=== PATIENT | female | born 1970 | race African-American/Black ===

== ENCOUNTER 2019-11-10 01:50 | Inpatient (IN) | payer OTHER ==
[2019-11-10] MEDS ORDERED: Senokot S 8.6-50 MG TAB PO PRN (03:01)
[2019-11-10] MEDS ORDERED: Dextrose 50% Abboject 50 ML SYRINGE SLOW IVP PRN (03:52)
[2019-11-10] MEDS ORDERED: HumaLOG 300 UNITS/3 ML VIAL SC PRN (03:52)
[2019-11-10] MEDS ORDERED: Dextrose 5% in Water 1,000 ML IV PRN (03:52)
[2019-11-10 03:53] LABS: Anion Gap 16 mmol/L (10-20); BUN (Urea Nitrogen) 9 mg/dL (9.8-20.1); Calc. Creatinine Clearance 0 mL/min (70-130); Calcium 9.3 mg/dL (7.8-10.44); Carbon Dioxide 25 mmol/L (22-29); Chloride 102 mmol/L (98-107); Estimated GFR-MDRD Greater than 90; Glucose 174 mg/dL (70-105); Potassium 4.4 mmol/L (3.5-5.1); Sodium 139 mmol/L (136-145)
[2019-11-10] MEDS ORDERED: Ondansetron PF 4 MG/2 ML Vial IVP PRN (03:53)
[2019-11-10 03:58] LABS: Hemoglobin 13.6 g/dL (12.0-16.0); Lymphocytes 11 % (21-51); MDiff Complete? YES; Mean Corpuscular HGB CONC 32.3 g/dL (32.0-36.0); Mean Corpuscular Hemoglobin 29.3 pg (27.0-31.0); Mean Corpuscular Volume 90.8 fL (78.0-98.0); Mean Platelet Volume 9.3 fL (7.4-10.4); Monocytes 11 % (0-10); Neutrophil 78 % (42-75); Platelet Count 187 thou/uL (130-400); Platelet Morphology Comment Appears Adequate; RBC Distribution Width 13.5 % (11.5-14.5); Red Blood Cell (RBC) Count 4.64 mill/uL (4.20-5.40); White Blood Cell (WBC) Count 11.2 thou/uL (4.8-10.8)
[2019-11-10 04:21] VITALS: BMI 60.6
--- NOTE | 2019-11-10 04:21 | HP ---
CHIEF COMPLAINT: Abdominal pain, nausea, and vomiting. HISTORY OF PRESENT ILLNESS: The patient is a 49-year-old female with past medical history of hypertension, diabetes, obesity, and a history of DVT, who presents to the hospital with complaints of abdominal pain, nausea, and vomiting going on for the past couple of days. The patient states that for the past couple of days, she has been significantly nauseated today. She had significant amount of vomiting and abdominal pain, so she came into the ER. She denies any fevers, however, she stated that she did have some chills. PAST MEDICAL HISTORY: As of the following, 1. She has a history of obesity. 2. Peripheral edema. 3. History of DVT and PE in 2010. 4. Hypertension. 5. Heart failure. 6. She has a history of hyperlipidemia. 7. Type 2 diabetic. 8. Generalized headaches. PAST SURGICAL HISTORY: 1. She has had a pacemaker to her left chest wall area. 2. Knee surgery. 3. . SOCIAL HISTORY: She denies any smoking, alcohol use, or drug use. She is a full code. Lives with her family. FAMILY HISTORY: Mother had strokes. REVIEW OF SYSTEMS: All negative except for the ones mentioned above in the HPI. ALLERGIES: SHE HAS NO KNOWN DRUG ALLERGIES. MEDICATIONS: 1. Atorvastatin 40 mg daily. 2. Bumex 3 mg p.o. twice a day. 3. Lasix 40 mg daily. 4. Metformin 500 mg q.24 hours. 5. Lisinopril 10 mg daily. 6. Metoprolol 100 mg q.24 hours. 7. Pantoprazole 40 mg daily. 8. Spironolactone 25 mg daily. 9. Tramadol 50 mg every 6 hours p.r.n. 10. She is on warfarin. LABORATORY RESULTS: As of the following; her sodium was 142, potassium of 4.1, BUN was 12, creatinine was 0.77. Her LFTs were normal. AST was 14, ALT was 15, alkaline phosphatase was 79, lipase was 13. Her INR was 1.8. Troponin was normal. CBC; WBCs of 7.5, hemoglobin of 12.9, hematocrit of 40.5, platelets of 205. She did have an abdominal ultrasound, which indicated a shadowing nonmobile calculus noted to the neck of the gallbladder measuring 1.7 cm. Gallbladder wall is mildly thickened, measuring 0.4. Common bile duct is normal. PHYSICAL EXAMINATION: VITAL SIGNS: Are as of the following; temperature of 99.1, pulse of 85, blood pressure 182/90, on room air, and respiratory rate 17. GENERAL: She is awake, alert, and oriented x3. Does not appear in distress. HEENT: Normocephalic and atraumatic. No lymphadenopathy noted. Pupils are equal and reactive to light. CV: S1 and S2 present. No murmurs, rubs, or gallops. She does have pacemaker to her left chest wall area. LUNGS: Clear to auscultation. No rhonchi or wheezes noted. ABDOMEN: Large, obese. Bowel sounds are present x2. Pain upon palpation to right upper quadrant. Lower extremity, +1 lower extremity edema. Pedal pulses are present x2. NEUROVASCULAR: There were no focal deficits noted. SKIN: No cuts, lesions, or bruises noted. ASSESSMENT AND PLAN: The patient is a very pleasant 49-year-old female, who presents to the hospital with complaints of abdominal pain. 1. Abdominal pain, most likely secondary to calculus noted to be in the neck of the gallbladder. Her LFTs are normal. There was some thickening of the gallbladder. We will start the patient on IV hydration. We will keep her n.p.o. Surgery has been consulted, and we will continue to monitor her LFTs. 2. History of diabetes. We will put the patient on Accu-Cheks before meals and at bedtime and hold metformin. 3. Hypertension. We will continue the patient's blood pressure medications and start her on p.r.n. 4. History of deep venous thrombosis and pulmonary embolism. The patient stated that she had a deep venous thrombosis, which ended up going into her lungs in 2010. She has since then been on Coumadin. We will hold off on her Coumadin and may start heparin if needed. 5. The patient states that she does have a history of heart disease; however, she has never been here before and we do not have any records from her. We will need to get records from her recent echocardiogram. She did have an EKG done in the ER, which did not show any acute ST elevation or depression. The patient denies any chest pain or shortness of breath. She is not on any oxygen at home nor she is on any BiPAP. 6. Deep venous thrombosis prophylaxis. The patient's INR currently 1.8. We will continue to monitor. Job ID: [id number]
[2019-11-10] MEDS: Sodium Chloride 0.9% 1,000 ML IV SCH (04:54)
[2019-11-10] MEDS ORDERED: Enoxaparin Sodium 40 MG/0.4 ML SYRINGE SC SCH (09:00)
[2019-11-10] MEDS: Lisinopril 10 MG TAB PO SCH (10:39)
[2019-11-10 15:08] LABS: INR-International Normal Ratio 1.6; PTT 33.2 SEC (22.9-36.1); Prothrombin Time 19.1 SEC (12.0-14.7)
[2019-11-10 15:19] LABS: ALT (SGPT) 9 U/L (8-55); AST (SGOT) 10 U/L (5-34); Albumin 3.9 g/dL (3.5-5.0); Alkaline Phosphatase 68 U/L (40-110); Bilirubin, Direct 0.7 mg/dL (0.1-0.3); Bilirubin, Total 1.9 mg/dL (0.2-1.2); Lipase Less than 4 U/L (8-78)
--- NOTE | 2019-11-10 15:25 | RAD ---
EXAM: Single view of the chest HISTORY: Dyspnea; preoperative radiograph COMPARISON: 09/27/2015 FINDINGS: Single view of the chest shows an enlarged but stable cardiomediastinal silhouette. The pa cemaker is unchanged in position. There is no evidence of consolidation, mass, or pleural effusion. Degenerative changes are seen in the spine. IMPRESSION: Cardiomegaly
[2019-11-10] MEDS: Piperacillin/Tazobactam 3.375 GM in Sodium Chloride 0.9% 100 ML IVPB SCH ×2 (16:06→19:33)
[2019-11-10] MEDS ORDERED: Magnesium Sulfate 4 GM in Sodium Chloride 0.9% 250 ML 250 ML IVPB SCH (16:15)
[2019-11-10] MEDS ORDERED: Phytonadione 10 MG/ML AMP PO SCH (16:15)
--- NOTE | 2019-11-10 16:53 | CON ---
DATE OF CONSULTATION: 11/10/2019 PRIMARY WOLF HUNTER: Mejia Ventura MD REASON FOR CONSULTATION: Preoperative evaluation. HISTORY OF PRESENT ILLNESS: Ms. Baker is a pleasant 49-year-old woman with long history of nonischemic cardiomyopathy. She was seen in the office in August of this year and doing well. Ejection fraction was 25% to 30% at that time, which was improved from previous studies. The patient otherwise has been doing relatively well until she developed symptoms of cholecystitis. This is outlined in the chart. MEDICATIONS: At home included: 1. Lisinopril. 2. Spironolactone. 3. Potassium. 4. Furosemide. 5. Metoprolol. 6. Atorvastatin. The patient is also taking Coumadin for deep venous thrombosis and pulmonary embolism many years ago. ALLERGIES: NONE KNOWN. SOCIAL HISTORY: No alcohol or tobacco abuse. REVIEW OF SYSTEMS: CONSTITUTIONAL: No significant weight gain or loss. VISION: No changes. HEARING: No changes. PULMONARY: No cough or wheezing. GASTROINTESTINAL: No nausea, vomiting, or diarrhea. She does have abdominal pain. SKIN: No rashes. PHYSICAL EXAMINATION: GENERAL: This is extremely overweight woman. VITAL SIGNS: She is 5 feet 4 inches, 353 pounds, BMI 60, blood pressure 138/85, pulse 95 and regular. LUNGS: Clear. CARDIAC: Normal S1, normal S2. I do not hear murmur, rub, or gallop. ABDOMEN: Soft, nontender. EXTREMITIES: Warm, dry. No clubbing or cyanosis. There is no edema. PERTINENT LABORATORY DATA: The WBC count is 11.2. INR is 1.6. EKG, sinus rhythm with PVCs. ASSESSMENT: 1. Acute cholecystitis. 2. Nonischemic cardiomyopathy, appears stable, not in heart failure. 3. Previous single-chamber defibrillator. She said this was checked recently by the vertical punch operator and functioning normally. Appears to be sensing normally on the EKG now. PLAN: 1. Okay to proceed with surgeries as planned. 2. Dr. Ventura will check on the patient tomorrow. Job ID: [id number]
--- NOTE | 2019-11-10 18:33 | CON ---
DATE OF CONSULTATION: 11/10/2019 This is Erica Laws PA-C dictating a report for Joselito Maurer DO. GENERAL SURGEON: Dr. Maurer. HISTORY OF PRESENT ILLNESS: The patient is a 49-year-old female who was admitted for concern for acute cholecystitis. The patient was originally evaluated at [facility] and then transferred here. She reports a 2-day history of right upper quadrant and epigastric pain with nausea and vomiting. Her last bowel movement was yesterday, and she does not have bowel movements every day. The patient reports the pain started after eating at [facility]. The pain was much better controlled now. She has been n.p.o. since her arrival. The patient is on Coumadin for DVT and PEs in 2010. She also has a history of hypertension, diabetes, obesity, VTE, peripheral vascular disease, CHF, and hyperlipidemia. She has an ICD as well. Her sports development officer is Dr. Ventura. She is compliant with her medications. Dr. Wiggins has consulted Cardiology on-call and Dr. Gotti has evaluated the patient for preoperative clearance. At the time of my evaluation, the patient reported her pain was better controlled, and she had no other complaints. REVIEW OF SYSTEMS: All additional 10-point review of systems negative except as indicated above. PAST MEDICAL HISTORY: Hypertension, diabetes, obesity, DVT, PE in 2010, peripheral vascular disease, CHF, hyperlipidemia, and ICD placement. PAST SURGICAL HISTORY: x1, knee scope, and ICD placement. SOCIAL HISTORY: The patient lives at home with her family. She walks independently without assistance. She denies tobacco and drug use. She does drink occasionally. MEDICATIONS: Include: 1. Vitamin B12. 2. Lisinopril. 3. Metformin. 4. Coumadin. 5. Atorvastatin. 6. Bumex. 7. Lasix. 8. Potassium chloride. 9. Spironolactone. PHYSICAL EXAMINATION: VITAL SIGNS: Temperature 100.0, pulse 95, respirations 16, oxygen saturation 95% on room air, and blood pressure 138/85. GENERAL: A middle-aged obese female, lying in bed with no signs of acute distress. PULMONARY: Equal chest rise and fall. Clear breath sounds bilaterally. No signs of acute respiratory distress. CARDIAC: Regular rate and rhythm. No murmurs, gallops, or rubs. GI: Abdomen is soft, moderately tender in the right upper quadrant and epigastric areas. Nondistended. EXTREMITIES: 2+ pulses in all extremities. Gross motor and sensation intact. NEUROLOGIC: GCS 15. LABORATORY FINDINGS: White count 11.2, hemoglobin 13.6, hematocrit 42.1, and platelets 187. INR 1.6. Sodium 139, potassium 4.4, chloride 102, bicarb 25, BUN 9, creatinine 0.75, glucose 174, magnesium 1.5, total bilirubin 1.9, and AST 10, ALT 9. DIAGNOSTIC FINDINGS: Ultrasound of the right upper quadrant completed at [facility] demonstrated a nonmobile gallstone at the neck of the gallbladder measuring about 1.7 cm with wall thickening. Gallbladder wall measuring 0.4 cm concerning for acute cystitis. Common bile duct measuring 4 mm. ASSESSMENT: Acute cholecystitis and cholelithiasis. PLAN: The patient will receive a clear liquid diet and be n.p.o. after midnight in preparation for laparoscopic cholecystectomy tomorrow with Dr. Maurer. She will receive 2.5 mg of vitamin K oral today. We will repeat blood work tomorrow including coags. We will also complete a type and screen. The patient was seen and examined by Dr. Maurer and myself this evening. Job ID: [id number]
[2019-11-10] MEDS: Bumetanide 1 MG TAB PO SCH (19:32)
[2019-11-10] MEDS: Acetaminophen 325 MG TAB PO PRN (19:32)
[2019-11-11] MEDS: Sodium Chloride 0.9% 1,000 ML IV SCH ×2 (01:02→21:06)
[2019-11-11] MEDS: Piperacillin/Tazobactam 3.375 GM in Sodium Chloride 0.9% 100 ML IVPB SCH ×4 (03:21→21:04)
[2019-11-11 05:48] LABS: INR-International Normal Ratio 1.6; PTT 34.3 SEC (22.9-36.1); Prothrombin Time 18.5 SEC (12.0-14.7)
[2019-11-11 05:58] LABS: Phosphorus 3.1 mg/dL (2.3-4.7)
[2019-11-11 06:06] LABS: Band 7 % (5-11); Hemoglobin 13.7 g/dL (12.0-16.0); Lymphocytes 12 % (21-51); MDiff Complete? YES; Mean Corpuscular HGB CONC 32.1 g/dL (32.0-36.0); Mean Corpuscular Hemoglobin 28.9 pg (27.0-31.0); Mean Corpuscular Volume 89.9 fL (78.0-98.0); Mean Platelet Volume 9.7 fL (7.4-10.4); Monocytes 4 % (0-10); Neutrophil 77 % (42-75); Platelet Count 184 thou/uL (130-400); RBC Distribution Width 13.5 % (11.5-14.5); Red Blood Cell (RBC) Count 4.75 mill/uL (4.20-5.40); White Blood Cell (WBC) Count 14.2 thou/uL (4.8-10.8)
[2019-11-11 06:07] LABS: ALT (SGPT) 9 U/L (8-55); AST (SGOT) 10 U/L (5-34); Albumin 3.9 g/dL (3.5-5.0); Alkaline Phosphatase 71 U/L (40-110); Anion Gap 14 mmol/L (10-20); BUN (Urea Nitrogen) 6 mg/dL (9.8-20.1); Bilirubin, Total 2.8 mg/dL (0.2-1.2); Calc. Creatinine Clearance 244 mL/min (70-130); Calcium 9.2 mg/dL (7.8-10.44); Carbon Dioxide 29 mmol/L (22-29); Chloride 99 mmol/L (98-107); Estimated GFR-MDRD Greater than 90; Globulin 3.4 g/dL (2.4-3.5); Glucose 148 mg/dL (70-105); Magnesium 1.8 mg/dL (1.6-2.6); Potassium 3.7 mmol/L (3.5-5.1); Protein, Total 7.3 g/dL (6.0-8.3); Sodium 138 mmol/L (136-145)
[2019-11-11] MEDS ORDERED: HYDROmorphone 0.5 MG/0.5 ML SYRINGE ONE (06:21)
[2019-11-11] MEDS ORDERED: Midazolam HCl 2 mg/2 ml Vial ONE (06:21)
[2019-11-11] MEDS ORDERED: Fentanyl 100 MCG/2 ML VIAL ONE ×2 (06:21→11:02)
[2019-11-11] MEDS ORDERED: Lidocaine 2% Jelly 5 ML TUBE ONE (06:21)
[2019-11-11] MEDS ORDERED: Lidocaine 1% w/Epinephrine 1:100K 20 ML VIAL ONE (06:53)
[2019-11-11] MEDS ORDERED: Bupivacaine 0.25% HCL 30 ML VIAL ONE (06:53)
[2019-11-11] MEDS ORDERED: Ketamine 50 MG/ML (10ML VIAL) ONE (07:04)
[2019-11-11] MEDS ORDERED: Magnesium 2 GM/50 ML 2 GM in Premix Bag 1 BAG IVPB SCH (07:45)
[2019-11-11] MEDS ORDERED: PHOS-NAK 1 PKT PACK PO SCH (07:45)
[2019-11-11] MEDS ORDERED: Albuterol Sulfate HFA (OR ONLY) ONE ×2 (07:46→07:47)
[2019-11-11] MEDS ORDERED: Piperacillin/Tazobactam 3.375 GM VIAL ONE (08:23)
[2019-11-11] MEDS ORDERED: Phenylephrine HCL 10 MG/ML VIAL ONE (08:39)
[2019-11-11] MEDS ORDERED: Furosemide 40 MG TAB PO SCH (09:00)
[2019-11-11] MEDS ORDERED: SUGAMMADEX SODIUM 500 MG/5 ML VIAL ONE (09:22)
[2019-11-11] MEDS ORDERED: Promethazine HCl 25 MG/ML VIAL IM PRN (10:49)
[2019-11-11] MEDS ORDERED: Ondansetron HCl/PF 4 MG/2 ML Vial IVP PRN (10:49)
[2019-11-11] MEDS ORDERED: Promethazine HCl 25 MG/ML VIAL SLOW IVP PRN (10:49)
[2019-11-11] MEDS ORDERED: Rocuronium Bromide 10 MG/ML (10ML VIAL) ONE (12:31)
[2019-11-11] MEDS ORDERED: Dexamethasone 20 MG/5 ML VIAL ONE (12:31)
[2019-11-11] MEDS ORDERED: Ondansetron PF 4 MG/2 ML Vial ONE (12:31)
[2019-11-11] MEDS ORDERED: Lidocaine 1% PF 5 ML VIAL ONE (12:31)
[2019-11-11] MEDS ORDERED: PHENYLEPHRINE-NS 100 MCG/ML 10 ML SYRINGE ONE (12:31)
[2019-11-11] MEDS ORDERED: PROPOFOL 200 MG/20 ML VIAL ONE (12:31)
--- NOTE | 2019-11-11 12:38 | OP ---
DATE OF PROCEDURE: 11/11/2019 PREOPERATIVE DIAGNOSES: 1. Acute cholecystitis with cholelithiasis. 2. Morbid obesity. BMI is 62. POSTOPERATIVE DIAGNOSES: 1. Acute cholecystitis with cholelithiasis. 2. Morbid obesity. BMI is 62. PROCEDURE PERFORMED: Laparoscopic cholecystectomy. ANESTHESIA: General endotracheal. ESTIMATED BLOOD LOSS: 20 mL. FLUIDS GIVEN: 2000 mL of crystalloids. COUNTS: Sponge and instrument counts were verified as correct x2. COMPLICATIONS: None apparent at the time of operation. INDICATIONS FOR OPERATION: This is a 49-year-old morbidly obese woman, BMI 62, presented with epigastric right upper quadrant abdominal pain after eating. Clinical radiographic examination was consistent with acute cholecystitis and cholelithiasis, for which the patient was brought to the operating room for cholecystectomy. Findings are consistent with markedly distended gallbladder in the usual anatomic location completely encased by omental adhesions. Additionally, the patient's body habitus made it difficult to insufflate the patient to gain appropriate exposure. The patient's physiology did not tolerate a reverse Trendelenburg position, which made operation rather tedious. DESCRIPTION OF PROCEDURE: Informed consent was obtained from the patient, who was brought to the operating room and placed in supine position. Following general anesthesia, abdomen was sterilely prepped and draped in usual fashion. I decided to enter the abdominal cavity through the left upper quadrant due to the patient's morbid obesity with large pannus. To achieve this, the left upper quadrant was anesthetized with 1% lidocaine. A stab incision was made through which a Veress needle was introduced into the peritoneal cavity. Abdomen was insufflated with 2 L of CO2 gas with intraabdominal pressure of 4 mmHg. Following abdominal insufflation, Veress needle was removed and a 5-mm trocar introduced using a Visiport. Laparoscopy confirmed proper placement of the port. No injuries to underlying structures. Additional laparoscopy reveals markedly distended intestines despite being adequately paralyzed. There was minimum room in the abdominal cavity. The skin 4 cm above the umbilicus was infiltrated with 0.25% Marcaine with epinephrine and a small transverse incision was made here using 11 scalpel. A 5-mm trocar was introduced using a Visiport into the peritoneal cavity. Under direct laparoscopy, a 12 mm epigastric and two 5 mm right lateral subcostal ports were placed after the overlying skin were infiltrated with 0.25% Marcaine with epinephrine. Appropriate incisions were made. The patient was then placed in reverse Trendelenburg position, rotated to her left, which she was unable to tolerate for more than 10 minutes at the time. I introduced a [place] dissector with cautery through the epigastric port site, using this to take down omental adhesions to expose the fundus of the gallbladder. Prestige grasper introduced through the right lateral subcostal port grasping the fundus of the gallbladder, which was taut. We decided therefore to decompress the gallbladder to allow for ease of manipulation. To achieve this to use the Endo suction catheter with cautery to create a cholecystotomy at the dome of the gallbladder, evacuating large amount of excess white bile. Prestige grasper was then applied to the fundus of the gallbladder, which was elevated cephalad. Omental adhesions were meticulously dissected off the remainder of the gallbladder. A second Prestige grasper introduced through the right medial subcostal port grasping the Haider's pouch, which was retracted laterally. The cystic duct was carefully dissected free from surrounding structures with great difficulty due to significant amount of dense adhesions. The duct was divided between clips, applying 2 clips proximally and one clip at the junction of the cystic duct and gallbladder. The cystic artery was also carefully dissected free from surrounding structures and divided between clips in a similar fashion. The gallbladder itself was removed from the liver bed using cautery with good hemostasis. It was delivered of the abdominal cavity using an Endo Catch. Operative site was inspected for good hemostasis. Finding no other pathology, laparoscopy was terminated. Fascia of the epigastric port was closed using 0 Vicryl suture and Endo Close device under laparoscopy. The abdomen was desufflated. All ports and instruments removed and accounted for. Skin incisions were closed using 4-0 Monocryl suture in subcuticular fashion. Dermabond was applied over incisional closure. The patient tolerated the operation without any apparent complication and was returned to recovery room in satisfactory condition. Note that, the patient had multiple episodes of hypertension due to being placed in a supine position requiring vasopressor support, so we interrupted operation at multiple instance in order to gain adequate blood pressure. Job ID: [id number]
[2019-11-11] MEDS: Atorvastatin Calcium 40 MG TAB PO SCH (13:50)
[2019-11-11] MEDS: Bumetanide 1 MG TAB PO SCH ×2 (13:50→21:04)
[2019-11-11] MEDS: Lisinopril 10 MG TAB PO SCH (13:50)
[2019-11-11] MEDS: Potassium Chloride 20 MEQ TAB PO SCH (13:51)
[2019-11-11] MEDS: Saccharomyces boulardii 250 MG CAP PO SCH (13:51)
[2019-11-11] MEDS: Spironolactone 25 MG TAB PO SCH (13:51)
[2019-11-11] MEDS ORDERED: traMADol HCl 50 MG TAB PO PRN (15:47)
--- NOTE | 2019-11-11 17:21 | PDOC.HOSPP ---
- Subjective Encounter Date: 11/11/19 Encounter Time: 16:30 Subjective: Patient seen and examined for acute cholecystitis. Pain controlled. No N/V. No new complaints. No overnight events - Objective Vital Signs & Weight: Vital Signs (12 hours) Temp BP Pulse Ox 11/11/19 16:00 97.9 F 11/11/19 13:50 159/84 H 11/11/19 12:15 100 Weight Weight 353 lb 2.888 oz I&O: 11/10/19 11/11/19 11/12/19 06:59 06:59 06:59 Intake Total 1230 Balance 1230 Result Diagrams: 11/11/19 05:16 11/11/19 05:16 EKG Reviewed by me: Yes (Tele SR) Hospitalist ROS - Review of Systems Respiratory: denies: cough, dry, shortness of breath, hemoptysis, SOB with excertion, pleuritic pain, sputum, wheezing, other Cardiovascular: denies: chest pain, palpitations, orthopnea, paroxysmal noc. dyspnea, edema, light headedness, other - Medication Medications: Active Medications Generic Name Dose Route Start Last Admin Trade Name Freq PRN Reason Stop Dose Admin Acetaminophen 650 mg 11/10/19 03:01 11/10/19 19:32 Tylenol PO 650 mg Q4H PRN Administration Headache/Fever/Mild Pain (1-3) Atorvastatin Calcium 40 mg 11/11/19 09:00 11/11/19 13:50 Lipitor PO Not Given DAILY DOLLY Bumetanide 3 mg 11/10/19 21:00 11/11/19 13:50 Bumex PO Not Given BID DOLLY Sodium Chloride 1,000 mls @ 50 mls/hr 11/10/19 04:00 11/11/19 01:02 Normal Saline 0.9% IV Not Given .Q20H DOLLY Piperacillin Sod/Tazobactam 100 mls @ 200 mls/hr 11/10/19 15:00 11/11/19 16: 48 Sod 3.375 gm/ Sodium Chloride IVPB 100 mls 0300,0900,1500,2100 DOLLY Administration Lisinopril 10 mg 11/10/19 09:00 11/11/19 13:50 Zestril PO Not Given DAILY DOLLY Metoprolol Succinate 100 mg 11/10/19 09:00 11/11/19 05:57 Toprol Xl PO 100 mg DAILY DOLYL Administration Pantoprazole Sodium 40 mg 11/10/19 09:00 11/11/19 13:51 Protonix PO Not Given DAILY DOLLY Potassium Chloride 20 meq 11/11/19 09:00 11/11/19 13:51 K-Dur PO Not Given DAILY DOLLY Saccharomyces Boulardii 250 mg 11/11/19 09:00 11/11/19 13:51 Florastor PO Not Given DAILY DOLLY Spironolactone 12.5 mg 11/11/19 09:00 11/11/19 13:51 Aldactone PO Not Given DAILY DOLLY - Exam General Appearance: NAD Heart: RRR, no gallops, no rubs, normal peripheral pulses Respiratory: no wheezes, no rales, no ronchi, normal chest expansion Respiratory - other findings: dec AE at bases Gastrointestinal: soft, normal bowel sounds, no guarding, no rigidity Extremities: no cyanosis, no clubbing Psychiatric: normal affect, A&O x 3 Hosp A/P - Plan DVT proph w/SCDs Sepsis due to Acute cholecystitis (POA) s/p Lap erin Abn LFTs due to above Chronic systolic HF due to Nonischemic CM Morbid obesity BMI 60.6 h/o DVT/PE on chronic anticoag HTN HLD DM2 PLAN: DC IVF later today if tolerating PO Cont IV Zosyn Cont sliding scale Cont diuretics/ACEI/BB/Potassium and other meds as above AM labs including PT/INR
[2019-11-11] MEDS: traMADol HCl 50 MG TAB PO PRN (18:58)
[2019-11-11] MEDS: Acetaminophen 325 MG TAB PO PRN (18:58)
--- NOTE | 2019-11-12 02:02 | PRG ---
DATE OF SERVICE: 11/11/2019 SUBJECTIVE: The patient was seen on the intermediate care unit, awake, alert, in no distress. The patient is postop day 0, status post laparoscopic cholecystectomy. The patient reports some mild tenderness to her abdomen. The patient has adequate urinary output. The patient denies any nausea or vomiting. The patient is tolerating a clear liquid diet at this time. OBJECTIVE: VITAL SIGNS: Stable, afebrile. GENERAL: Middle-aged female, obese, lying in hospital bed, in no acute distress. RESPIRATORY: Equal chest rise and fall, bilateral breath sounds clear. PLAN: Continue supportive care. Continue to monitor urinary output and blood pressure. Job ID: [id number]
[2019-11-12] MEDS: Piperacillin/Tazobactam 3.375 GM in Sodium Chloride 0.9% 100 ML IVPB SCH ×4 (03:29→20:41)
[2019-11-12 03:54] LABS: INR-International Normal Ratio 1.3; Prothrombin Time 15.9 SEC (12.0-14.7)
[2019-11-12 04:10] LABS: ALT (SGPT) 12 U/L (8-55); AST (SGOT) 20 U/L (5-34); Albumin 3.7 g/dL (3.5-5.0); Alkaline Phosphatase 68 U/L (40-110); Anion Gap 14 mmol/L (10-20); BUN (Urea Nitrogen) 9 mg/dL (9.8-20.1); Bilirubin, Total 1.8 mg/dL (0.2-1.2); Calc. Creatinine Clearance 210 mL/min (70-130); Calcium 8.6 mg/dL (7.8-10.44); Carbon Dioxide 29 mmol/L (22-29); Chloride 103 mmol/L (98-107); Estimated GFR-MDRD Greater than 90; Globulin 3.4 g/dL (2.4-3.5); Glucose 143 mg/dL (70-105); Magnesium 1.8 mg/dL (1.6-2.6); Phosphorus 3.5 mg/dL (2.3-4.7); Protein, Total 7.1 g/dL (6.0-8.3); Sodium 142 mmol/L (136-145)
[2019-11-12 04:16] LABS: Hemoglobin 12.2 g/dL (12.0-16.0); Mean Corpuscular HGB CONC 31.4 g/dL (32.0-36.0); Mean Corpuscular Hemoglobin 28.7 pg (27.0-31.0); Mean Corpuscular Volume 91.4 fL (78.0-98.0); Mean Platelet Volume 9.4 fL (7.4-10.4); Platelet Count 176 thou/uL (130-400); RBC Distribution Width 13.4 % (11.5-14.5); Red Blood Cell (RBC) Count 4.25 mill/uL (4.20-5.40); White Blood Cell (WBC) Count 14.6 thou/uL (4.8-10.8)
[2019-11-12 04:17] LABS: Band 7 % (5-11); Lymphocytes 15 % (21-51); MDiff Complete? YES; Monocytes 9 % (0-10); Neutrophil 69 % (42-75)
[2019-11-12] MEDS: Spironolactone 25 MG TAB PO SCH (09:20)
[2019-11-12] MEDS: Saccharomyces boulardii 250 MG CAP PO SCH (09:20)
[2019-11-12] MEDS: Atorvastatin Calcium 40 MG TAB PO SCH (09:20)
[2019-11-12] MEDS: Potassium Chloride 20 MEQ TAB PO SCH (09:20)
[2019-11-12] MEDS: Bumetanide 1 MG TAB PO SCH ×2 (09:20→20:40)
[2019-11-12] MEDS: Lisinopril 10 MG TAB PO SCH (09:21)
[2019-11-12] MEDS: traMADol HCl 50 MG TAB PO PRN (09:24)
[2019-11-12] MEDS: Acetaminophen 325 MG TAB PO PRN ×2 (09:24→17:55)
--- NOTE | 2019-11-12 15:58 | PRG ---
DATE OF SERVICE: 11/12/2019 SUBJECTIVE: Patient was seen this morning sitting up in a chair in the [facility]. She reported her pain is well controlled and she is tolerating her clear liquid diet. She gets up and walks independently. She has been voiding and was restarted on her home diuretic. She has no complaints at the time of my evaluation. OBJECTIVE: VITAL SIGNS: Temperature 97.9, pulse 93, respirations 18, oxygen saturation 100% on room air, blood pressure 166/94. GENERAL: Well-appearing, obese female, sitting up in chair with no signs of acute distress. PULMONARY: Equal chest rise and fall, clear breath sounds bilaterally. No signs of acute respiratory distress. CARDIAC: Regular rate and rhythm. GI: Abdomen is soft, mildly tender to the right upper quadrant, nondistended. EXTREMITIES: 2+ pulses in all extremities. Gross motor and sensation intact. No significant swelling noted. LABORATORY FINDINGS: White count 14.6, hemoglobin 12.2, hematocrit 38.8. INR 1.3. Sodium 142, potassium 4.0, chloride 103, bicarb 29, BUN 9, creatinine 0.80, glucose 143, phosphorus 3.5, magnesium 1.8. Total bilirubin 1.8, AST 20, ALT 12, alkaline phosphatase 68. DIAGNOSTIC FINDINGS: There are no new diagnostic findings to report. ASSESSMENT: 1. Postop day #1, status post laparoscopic cholecystectomy secondary to acute cholecystitis and cholelithiasis. 2. History of congestive heart failure, implantable cardioverter-defibrillator, diabetes, deep venous thrombosis, pulmonary embolism, on Coumadin, hyperlipidemia, and obesity. PLAN: The patient will be moved from the [facility] to a regular surgical floor. She will be advanced to a diabetic diet and start working with Physical Therapy. Medical management by Hospitalist team. The patient will follow up with Dr. Maurer in clinic in 2 weeks with LFTs. An appointment has been made and updated in the patient's discharge paperwork. Restart Coumadin per the discretion of the primary service. This patient was discussed with Dr. Maurer before this dictation. Job ID: [id number]
[2019-11-13] MEDS: Piperacillin/Tazobactam 3.375 GM in Sodium Chloride 0.9% 100 ML IVPB SCH ×2 (03:17→09:54)
[2019-11-13 05:38] LABS: INR-International Normal Ratio 1.2
[2019-11-13 05:48] LABS: ALT (SGPT) 17 U/L (8-55); AST (SGOT) 23 U/L (5-34); Albumin 3.6 g/dL (3.5-5.0); Alkaline Phosphatase 75 U/L (40-110); Anion Gap 17 mmol/L (10-20); BUN (Urea Nitrogen) 11 mg/dL (9.8-20.1); Bilirubin, Total 1.7 mg/dL (0.2-1.2); Calc. Creatinine Clearance 210 mL/min (70-130); Calcium 8.5 mg/dL (7.8-10.44); Carbon Dioxide 27 mmol/L (22-29); Chloride 100 mmol/L (98-107); Estimated GFR-MDRD Greater than 90; Globulin 3.4 g/dL (2.4-3.5); Glucose 121 mg/dL (70-105); Potassium 3.5 mmol/L (3.5-5.1); Sodium 140 mmol/L (136-145)
[2019-11-13 05:52] LABS: #Basophils 0.1 thou/uL (0.0-0.2); #Eosinphils 0.1 thou/uL (0.0-0.7); #Lymphocytes 2.4 thou/uL (1.20-3.40); #Monocytes 0.8 thou/uL (0.11-0.59); #Neutrophils 6.4 thou/uL (1.40-6.50); %Basophils 0.6 % (0.0-1.0); %Eosinophils 0.8 % (0.0-10.0); %Lymphocytes 24.8 % (21.0-51.0); %Monocytes 8.2 % (0.0-10.0); %Neutrophils 65.6 % (42.0-75.0); Hemoglobin 12.5 g/dL (12.0-16.0); Mean Corpuscular Hemoglobin 30.4 pg (27.0-31.0); Mean Corpuscular Volume 94.9 fL (78.0-98.0); Mean Platelet Volume 9.4 fL (7.4-10.4); Platelet Count 192 thou/uL (130-400); RBC Distribution Width 13.6 % (11.5-14.5); Red Blood Cell (RBC) Count 4.11 mill/uL (4.20-5.40); White Blood Cell (WBC) Count 9.8 thou/uL (4.8-10.8)
[2019-11-13] MEDS: Acetaminophen 325 MG TAB PO PRN (06:21)
--- NOTE | 2019-11-13 07:22 | PDOC.HOSPP ---
- Subjective Encounter Date: 11/12/19 Encounter Time: 16:30 Subjective: Patient seen and examined for Sepsis. No N/V. Abd pain improving. Tolerating liqd diet. No other complaints. No overnight events - Objective Vital Signs & Weight: Vital Signs (12 hours) Temp Pulse Resp BP Pulse Ox 11/13/19 03:21 98.6 F 77 16 93/68 99 11/12/19 23:24 98.5 F 74 16 97/63 99 11/12/19 20:39 98.6 F 69 16 112/74 97 Weight Weight 353 lb 2.888 oz Most Recent Monitor Data Heart Rate from ECG 75 NIBP 165/108 NIBP BP-Mean 127 Respiration from ECG 25 SpO2 100 I&O: 11/12/19 11/13/19 11/14/19 06:59 06:59 06:59 Intake Total 200 1170 Output Total 1800 900 Balance -1600 270 Result Diagrams: 11/13/19 05:15 11/13/19 05:15 Additional Labs: Accuchecks 11/13/19 11/12/19 11/12/19 06:21 20:52 15:54 POC Glucose 120 H 171 H 162 H 11/12/19 11:16 POC Glucose 147 H EKG Reviewed by me: Yes (Tele SR) Hospitalist ROS - Review of Systems Respiratory: denies: cough, dry, shortness of breath, hemoptysis, SOB with excertion, pleuritic pain, sputum, wheezing, other Cardiovascular: denies: chest pain, palpitations, orthopnea, paroxysmal noc. dyspnea, edema, light headedness, other - Medication Medications: Active Medications Generic Name Dose Route Start Last Admin Trade Name Freq PRN Reason Stop Dose Admin Acetaminophen 650 mg 11/10/19 03:01 11/13/19 06:21 Tylenol PO 650 mg Q4H PRN Administration Headache/Fever/Mild Pain (1-3) Atorvastatin Calcium 40 mg 11/11/19 09:00 11/12/19 09:20 Lipitor PO 40 mg DAILY DOLLY Administration Bumetanide 3 mg 11/10/19 21:00 11/12/19 20:40 Bumex PO 3 mg BID DOLLY Administration Piperacillin Sod/Tazobactam 100 mls @ 200 mls/hr 11/10/19 15:00 11/13/19 03: 17 Sod 3.375 gm/ Sodium Chloride IVPB 100 mls 0300,0900,1500,2100 DOLLY Administration Insulin Human Lispro 0 units 11/10/19 03:52 11/12/19 16:41 Humalog SC 2 unit .MILD SLIDING SCALE PRN Administration Mild Correctional Scale Lisinopril 10 mg 11/10/19 09:00 11/12/19 09:21 Zestril PO 10 mg DAILY DOLLY Administration Metoprolol Succinate 100 mg 11/10/19 09:00 11/12/19 09:20 Toprol Xl PO 100 mg DAILY DOLLY Administration Pantoprazole Sodium 40 mg 11/10/19 09:00 11/12/19 09:20 Protonix PO 40 mg DAILY DOLLY Administration Potassium Chloride 20 meq 11/11/19 09:00 11/12/19 09:20 K-Dur PO 20 meq DAILY DOLLY Administration Saccharomyces Boulardii 250 mg 11/11/19 09:00 11/12/19 09:20 Florastor PO 250 mg DAILY DOLLY Administration Spironolactone 12.5 mg 11/11/19 09:00 11/12/19 09:20 Aldactone PO 12.5 mg DAILY DOLLY Administration Tramadol HCl 50 mg 11/11/19 15:47 11/12/19 09:24 Ultram PO 50 mg Q6H PRN Administration Moderate Pain (4-6) Tramadol HCl 100 mg 11/11/19 15:47 11/12/19 17:55 Ultram PO 100 mg Q6H PRN Administration Severe Pain (7-10) - Exam General Appearance: NAD Heart: RRR, no gallops Respiratory: no wheezes, no ronchi Gastrointestinal: soft, non-distended Extremities: no cyanosis Hosp A/P - Plan DVT proph w/SCDs Sepsis due to Acute cholecystitis (POA) s/p Lap erin Abn LFTs - improving Chronic systolic HF due to Nonischemic CM Morbid obesity BMI 60.6 h/o DVT/PE on chronic anticoag HTN HLD DM2 - on sliding scale PLAN: Cont IV Zosyn Restart Warfarin in AM Cont other meds including ACEI/BB/Potassium/diuretics and other meds as above Transfer to Surgical floor AM labs
[2019-11-13] MEDS: Bumetanide 1 MG TAB PO SCH (09:53)
[2019-11-13] MEDS: Atorvastatin Calcium 40 MG TAB PO SCH (09:53)
[2019-11-13] MEDS: Spironolactone 25 MG TAB PO SCH (09:53)
[2019-11-13] MEDS: Saccharomyces boulardii 250 MG CAP PO SCH (09:53)
[2019-11-13] MEDS: Lisinopril 10 MG TAB PO SCH (09:54)
[2019-11-13] MEDS: Potassium Chloride 20 MEQ TAB PO SCH (09:54)
[2019-11-13 11:51] VITALS: BP 110/67; TEMP 98.4
--- NOTE | 2019-11-13 12:07 | DIS ---
DATE OF ADMISSION: 11/10/2019 DATE OF DISCHARGE: 11/13/2019 DISCHARGE DISPOSITION: Home. FOLLOWUP: 1. Follow up with primary care physician, [facility] in [place] in 1 week. 2. Follow up with Dr. Joselito Maurer as scheduled. ALLERGIES: NO KNOWN DRUG ALLERGIES. DISCHARGE MEDICATIONS: Augmentin 875 mg twice daily for next 2 days. All other home medications were left unchanged. The patient was seen and examined on the day of discharge. Denies any new complaints. No shortness of breath, nausea, vomiting, or abdominal pain reported. BRIEF HOSPITAL COURSE: The patient is a 49-year-old female with obesity, hypertension, hyperlipidemia, diabetes mellitus type 2, and chronic anticoagulation for history of DVT and pulmonary embolism in the past, presented to the emergency room with nausea, vomiting with abdominal discomfort. She was transferred from [facility]. Right upper quadrant ultrasound showed 1.7 cm calculus in the neck of the gallbladder along with gallbladder distention. She was admitted to this facility with a diagnosis of acute cholecystitis. She was evaluated by General Surgery. After cardiac clearance by Dr. Gotti, she underwent laparoscopic cholecystectomy on November 11, 2019. It was very difficult surgery per operative report. She was monitored closely in the intermediate care unit. Her diet was gradually advanced. She has been cleared by consultants for discharge. FINAL DIAGNOSES: 1. Sepsis due to acute infectious cholecystitis, status post laparoscopic cholecystectomy. 2. Abnormal LFTs, improving. Her LFTs at discharge showed total bilirubin 1.7 with AST of 23, ALT of 17, alkaline phosphatase of 75. Her maximum total bilirubin was 2.8. 3. Chronic anticoagulation for pulmonary embolism and deep venous thrombosis. Her INR on the day of discharge is 1.2. She was advised to resume warfarin. 4. Morbid obesity with a BMI 60.6. 5. Chronic systolic heart failure secondary to nonischemic cardiomyopathy, status post automatic implantable cardioverter-defibrillator. 6. Hypertension. 7. Hyperlipidemia. 8. Diabetes mellitus type 2. The patient understands the above plan of care. Job ID: [id number] MTDD
--- NOTE | 2019-11-13 15:19 | PRG ---
DATE OF SERVICE: 11/13/2019 SUBJECTIVE: The patient was seen this morning, sitting up in chair with no signs of acute distress. She reported her pain is well controlled. She slept well overnight and tolerating a diabetic diet. OBJECTIVE: VITAL SIGNS: Temperature 98.4, pulse 69, respirations 14, oxygen saturation 98% on room air, and blood pressure 110/67. GENERAL: Well-appearing middle-aged female, sitting up in chair with no signs of acute distress. PULMONARY: Equal chest rise and fall. Clear breath sounds bilaterally. No signs of acute respiratory distress. CARDIAC: Regular rate and rhythm. No murmurs, gallops, or rubs. GI: Abdomen is soft, nontender, nondistended. Six surgical sites are clean, dry, and intact with no signs of infection. EXTREMITIES: 2+ pulses in all extremities. No significant swelling noted. Gross motor and sensation are intact. LABORATORY DATA: Lab studies; white count 9.8, hemoglobin 12.5, hematocrit 39.0, and platelets 192. Sodium 140, potassium 3.5, chloride 100, bicarb 27, BUN 11, creatinine 0.80, and glucose 121. Total bilirubin 1.7, AST 23, and ALT 17. DIAGNOSTIC FINDINGS: There are no new diagnostic findings to report. ASSESSMENT: 1. Postop day #3, status post laparoscopic cholecystectomy for cholecystitis and cholelithiasis. 2. History of congestive heart failure; ICD; diabetes; pulmonary embolism; deep venous thrombosis, on Coumadin; hyperlipidemia; and obesity. PLAN: Continue current diet and pain regimen. The patient will follow up with us in clinic and appointment has been made and place in the discharge paperwork, surgery; okay for the patient to be discharged per the judgment of the hospitalist team. This patient was discussed with Dr. Maurer before this dictation. Job ID: [id number]
[2019-11-13] MEDS ORDERED: Warfarin Sodium 5 MG TAB PO SCH (17:00)
--- NOTE | 2019-11-15 07:41 | PQF ---
[place] KNOX MALIK MD [id number] CLINICAL DOCUMENTATION CLARIFICATION FORM: POST DISCHARGE Addendum to original discharge summary date: ____ Late entry note date: __ DATE:11/15/2019 ATTN: DIONICIO WIGGINS MD Please exercise your independent, professional judgment in responding to the clarification form. Clinical indicators are provided on the bottom of this form for your review Please check appropriate box(s): kindly clarify the diagnosis of acute cholecystitis; [ x ] Infectious acute cholecystitis [ ] Non-infectious acute cholecystitis [ ] Other diagnosis [ ] Unable to determine For continuity of documentation, please document condition throughout progress notes and discharge summary. Thank You. CLINICAL INDICATORS - SIGNS / SYMPTOMS / LABS Patient presents to the hospital with complaints of abdominal pain, nausea and vomiting going on for the past couple of days-Documented in H&P on 11/10 by Rut Ruvalcaba MD Acute cholecystitis with cholelithiasis-Documented in OP note on 11/11 by Joselito Maurer Do Sepsis due to acute cholecystitis-Documented in Discharge summary on 11/10 by Dionicio Wiggins MD Abnormal LFTs Improving-Documented in Discharge summary on 11/10 by Dionicio Wiggins MD [employer] Sepsis due to acute cholecystitis-Documented in Discharge summary on 11/10 by Dionicio Wiggins MD TREATMENTS: Laparoscopic cholecystectomy-Documented in OP note on 11/11 by Joselito Maurer Do Zosyn 3.373 gm IV -Documented in medication snapshot [employer] Win[employer](This form is maintained as a part of the permanent medical record) 2014 [employer]. All Rights Reserved [email or web address] [not [email or web address]] MTDD
== END 2019-11-13 13:10 | disposition home or self-care (01) | DRG 854 ==
LOC: ERS 01:50 → T4-B 03:58 → SURG A 11-11 10:58 → IMCU/EMU 11-11 13:16 → SURG A 11-12 13:29
PROVIDERS: ADMIT Internal Medicine; ATTEND Internal Medicine
PROC: 0FT44ZZ Resection of Gallbladder, Percutaneous Endoscopic Approach (ICD-10-PCS; principal; 2019-11-11)
DX: A41.9 Sepsis, unspecified organism (principal); K80.00 Calculus of gallbladder with acute cholecystitis without obstruction; Z68.44 Body mass index [BMI] 60.0-69.9, adult; I42.8 Other cardiomyopathies; I50.22 Chronic systolic (congestive) heart failure; E66.01 Morbid (severe) obesity due to excess calories; E78.5 Hyperlipidemia, unspecified; E11.51 Type 2 diabetes mellitus with diabetic peripheral angiopathy without gangrene; I10 Essential (primary) hypertension; Z98.890 Other specified postprocedural states; Z95.810 Presence of automatic (implantable) cardiac defibrillator; Z79.01 Long term (current) use of anticoagulants; Z86.718 Personal history of other venous thrombosis and embolism; Z86.711 Personal history of pulmonary embolism
CPT/HCPCS: 36415; 36416; 71045; 80048; 80053; 80076; 83690; 83735; 84100; 85025; 85610; 85730; 86850; 86900; 86901; 88304; 93005; J1100; J1170; J2001; J2250; J2370; J2405; J2543; J2704; J3010; J3430; J3475; J3490; J7050; S0020

== ENCOUNTER 2022-09-11 05:56 | Day surgery (SDC) | payer SELFPAY ==
[2022-09-09 15:46] VITALS: BMI 59.0
[2022-09-11] MEDS ORDERED: Vancomycin (BATCH) 1.5 GRAM/300 ML BAG ONE (06:08)
[2022-09-11] MEDS ORDERED: Gentamicin 80 MG/2 ML VIAL ONE (06:59)
[2022-09-11] MEDS ORDERED: Lidocaine 1% (PF) 30 ML VIAL ONE (06:59)
[2022-09-11] MEDS ORDERED: CEFAZOLIN 1 GM VIAL ONE (06:59)
[2022-09-11] MEDS ORDERED: Midazolam HCl 2 mg/2 ml Vial ONE (07:26)
[2022-09-11] MEDS ORDERED: FENTANYL 50 MCG/ML 1 ML VIAL ONE (07:27)
[2022-09-11] MEDS ORDERED: fentaNYL PF 100 MCG/2 ML SYRINGE ONE (08:38)
== END 2022-09-11 12:54 | disposition home or self-care (01) ==
LOC: SDC 05:56
PROVIDERS: ATTEND Internal Medicine Cardiovascular Disease
PROC: 0JH608Z Insertion of Defibrillator Generator into Chest Subcutaneous Tissue and Fascia, Open Approach (ICD-10-PCS; principal; 2022-09-11)
PROC: 0JPT0PZ Removal of Cardiac Rhythm Related Device from Trunk Subcutaneous Tissue and Fascia, Open Approach (ICD-10-PCS; principal; 2022-09-11)
DX: Z45.02 Encounter for adjustment and management of automatic implantable cardiac defibrillator (principal); I11.0 Hypertensive heart disease with heart failure; I50.22 Chronic systolic (congestive) heart failure; I48.0 Paroxysmal atrial fibrillation; I42.8 Other cardiomyopathies; E78.5 Hyperlipidemia, unspecified; E11.9 Type 2 diabetes mellitus without complications; E03.9 Hypothyroidism, unspecified; E66.9 Obesity, unspecified; Z68.43 Body mass index [BMI] 50.0-59.9, adult; Z86.718 Personal history of other venous thrombosis and embolism; Z79.01 Long term (current) use of anticoagulants; Z79.84 Long term (current) use of oral hypoglycemic drugs; Z79.890 Hormone replacement therapy; Z79.899 Other long term (current) drug therapy
CPT/HCPCS: J0690; J1580; J2001; J2250; J3010; J3370

== ENCOUNTER 2023-09-29 12:48 | Outpatient (CLI) | payer OTHER | END 2023-09-29 12:49 | disposition home or self-care (01) | LOC: BICRAD 12:48 | PROVIDERS: ATTEND Preventive Medicine Occupational Medicine | DX: I50.9 Heart failure, unspecified (principal); I51.7 Cardiomegaly; R09.89 Other specified symptoms and signs involving the circulatory and respiratory systems | CPT/HCPCS: 71046 ==

== ENCOUNTER 2023-10-02 22:33 | Emergency (ER) | payer OTHER ==
[2023-10-02] MEDS ORDERED: Furosemide 40 MG/4 ML VIAL ONE (22:56)
[2023-10-02] MEDS ORDERED: dilTIAZem 125 MG/25 ML SDV ONE (22:56)
[2023-10-02 23:22] LABS: #Monocytes 0.2 thou/uL (0.11-0.59); #Neutrophils 3.8 thou/uL (1.40-6.50); %Basophils 0.5 % (0.0-1.0); %Eosinophils 0.2 % (0.0-10.0); %Lymphocytes 26.7 % (21.0-51.0); %Monocytes 4.3 % (0.0-10.0); %Neutrophils 66.9 % (42.0-75.0); Hematocrit 44.4 % (36.0-47.0); Hemoglobin 14.3 g/dL (12.0-16.0); Mean Corpuscular HGB CONC 32.2 g/dL (32.0-36.0); Mean Corpuscular Volume 96.1 fl (78.0-98.0); Mean Platelet Volume 10.8 fL (7.4-10.4); Platelet Count 114 10x3/uL (130-400); RBC Distribution Width 15.6 % (11.5-14.5); Red Blood Cell (RBC) Count 4.62 mill/uL (4.20-5.40); White Blood Cell (WBC) Count 5.6 10x3/uL (4.8-10.8)
[2023-10-02 23:36] LABS: CRP (Inflammatory) 3.22 mg/dL (= or < 0.5); Magnesium 1.4 mg/dL (1.6-2.6)
[2023-10-02 23:37] LABS: ALT (SGPT) 39 U/L (8-55); AST (SGOT) 82 U/L (5-34); Albumin 4.1 g/dL (3.5-5.0); Alkaline Phosphatase 110 U/L (40-110); Anion Gap 23 mmol/L (10-20); BUN (Urea Nitrogen) 13 mg/dL (9.8-20.1); Bilirubin, Total 3.3 mg/dL (0.2-1.2); Calc. Creatinine Clearance 0 mL/min (70-130); Calcium 8.8 mg/dL (7.8-10.44); Carbon Dioxide 16 mmol/L (22-29); Chloride 101 mmol/L (98-107); Estimated GFR 58; Glucose 121 mg/dL (70-105); Potassium 5.2 mmol/L (3.5-5.1); Protein, Total 8.1 g/dL (6.0-8.3); Sodium 135 mmol/L (136-145)
[2023-10-02 23:40] LABS: Troponin I 0.061 ng/mL (< 0.028)
[2023-10-03 00:38] LABS: SARS-CoV-2 NAA Rapid Test Not Detected (NotDetected)
== END 2023-10-03 00:08 | disposition home or self-care (01) ==
LOC: ERS 22:33
DX: I11.0 Hypertensive heart disease with heart failure (principal); I50.9 Heart failure, unspecified; I48.20 Chronic atrial fibrillation, unspecified; J96.01 Acute respiratory failure with hypoxia; E11.9 Type 2 diabetes mellitus without complications; E78.5 Hyperlipidemia, unspecified; Z20.822 Contact with and (suspected) exposure to COVID-19
CPT/HCPCS: 71045; 80053; 83735; 83880; 84443; 84484; 85025; 86140; 93005; 94660; 96365; 96366; 96375; J1940

== ENCOUNTER 2023-12-20 16:00 | Outpatient (CLI) | payer OTHER | END 2023-12-20 16:01 | disposition home or self-care (01) | LOC: SLEEPLAB 16:00 | PROVIDERS: ATTEND Internal Medicine Critical Care Medicine | DX: G47.33 Obstructive sleep apnea (adult) (pediatric) (principal); I11.0 Hypertensive heart disease with heart failure; I50.9 Heart failure, unspecified; E66.9 Obesity, unspecified; Z68.43 Body mass index [BMI] 50.0-59.9, adult | CPT/HCPCS: 95811 ==

== ENCOUNTER 2024-08-09 07:39 | Outpatient (CLI) | payer OTHER | END 2024-08-09 07:40 | disposition home or self-care (01) | LOC: MRI 07:39 | PROVIDERS: ATTEND Orthopaedic Surgery | DX: R22.32 Localized swelling, mass and lump, left upper limb (principal); M65.312 Trigger thumb, left thumb; M79.642 Pain in left hand; M25.532 Pain in left wrist; G89.29 Other chronic pain; M77.8 Other enthesopathies, not elsewhere classified; S63.502A Unspecified sprain of left wrist, initial encounter; I51.7 Cardiomegaly; Z95.810 Presence of automatic (implantable) cardiac defibrillator | CPT/HCPCS: 71046 ==